=== PATIENT | female | born 1995 | race Caucasian/White ===

== ENCOUNTER 2018-04-09 10:24 | Day surgery (SDC) | payer BC ==
[2018-04-09] MEDS ORDERED: fentaNYL 100 MCG/2 ML SDV ONE (11:00)
[2018-04-09] MEDS ORDERED: Propofol 200 MG/20 ML SDV ONE (11:00)
[2018-04-09] MEDS ORDERED: Midazolam 1 MG/ML 2 ML SDV ONE (11:00)
[2018-04-09] MEDS ORDERED: Ondansetron 4 MG/2 ML SDV ONE (11:00)
[2018-04-09] MEDS ORDERED: Glycopyrrolate 0.2 MG/ML SDV ONE (11:01)
--- NOTE | 2018-04-09 11:18 | PCM.PREANE ---
Preanesthetic Assessment - Procedure Proposed Procedure: Removal IUD, D and C - Anesthesia/Transfusion/Family Hx Anesthesia History: Prior Anesthesia Without Reaction Family History of Anesthesia Reaction: No Transfusion History: No Prior Transfusion(s) Intubation History: Unknown - Review of Systems General: No Symptoms Pulmonary: No Symptoms Cardiovascular: No Symptoms Gastrointestinal: No Symptoms Neurological: No Symptoms Other: Reports: Depression, Anxiety - Physical Assessment NPO Status Date: 04/08/18 NPO Status Time: 22:00 O2 Sat by Pulse Oximetry: 98 Respiratory Rate: 16 Vital Signs: Last Vital Signs Temp 97.5 F 04/09/18 10:54 Pulse 66 04/09/18 10:54 Resp 16 04/09/18 10:54 BP 103/64 04/09/18 10:54 Pulse Ox 98 04/09/18 10:54 Height: 5 ft 6 in Weight: 176 lb ASA Class: 2 Mental Status: Alert & Oriented x3 Airway Class: Mallampati = 1 Dentition: Reports: Normal Dentition Thyro-Mental Finger Breadths: 3 Mouth Opening Finger Breadths: 3 ROM/Head Extension: Full Lungs: Clear to Auscultation, Normal Respiratory Effort Cardiovascular: Regular Rate, Regular Rhythm, No Murmurs - Lab Values: Laboratory Last Values WBC 5.49 K/uL (4.0-11.0) 04/09/18 10:38 RBC 5.04 M/uL (4.30-5.90) 04/09/18 10:38 Hgb 15.3 g/dL (12.0-16.0) 04/09/18 10:38 Hct 44.1 % (36.0-46.0) 04/09/18 10:38 MCV 87.5 fL (80.0-98.0) 04/09/18 10:38 MCH 30.4 pg (27.0-32.0) 04/09/18 10:38 MCHC 34.7 g/dL (31.0-37.0) 04/09/18 10:38 RDW Std Deviation 43.1 fl (28.0-62.0) 04/09/18 10:38 RDW Coeff of Wayne 14 % (11.0-15.0) 04/09/18 10:38 Plt Count 171 K/uL (150-400) 04/09/18 10:38 MPV 11.70 fL (7.40-12.00) 04/09/18 10:38 Neut % (Auto) 48.2 % (48.0-80.0) 04/09/18 10:38 Lymph % (Auto) 43.0 % (16.0-40.0) H 04/09/18 10:38 Dixie % (Auto) 7.3 % (0.0-15.0) 04/09/18 10:38 Eos % (Auto) 1.3 % (0.0-7.0) 04/09/18 10:38 Baso % (Auto) 0.2 % (0.0-1.5) 04/09/18 10:38 Neut # (Auto) 2.7 K/uL (1.4-5.7) 04/09/18 10:38 Lymph # (Auto) 2.4 K/uL (0.6-2.4) 04/09/18 10:38 [place] # (Auto) 0.4 K/uL (0.0-0.8) 04/09/18 10:38 Eos # (Auto) 0.1 K/uL (0.0-0.7) 04/09/18 10:38 Baso # (Auto) 0.0 K/uL (0.0-0.1) 04/09/18 10:38 Nucleated RBC % 0.0 /100WBC 04/09/18 10:38 Nucleated RBCs # 0 K/uL 04/09/18 10:38 - Allergies Allergies/Adverse Reactions: Allergies Allergy/AdvReac Type Severity Reaction Status Date / Time No Known Allergies Allergy Verified 03/08/18 20:53 - Blood Blood Available: No Product(s) Available: None - Anesthesia Plan Pre-Op Medication Ordered: None - Acknowledgements Anesthesia Type Planned: General Anesthesia (LMA) Pt an Appropriate Candidate for the Planned Anesthesia: Yes Alternatives and Risks of Anesthesia Discussed w Pt/Guardian: Yes Pt/Guardian Understands and Agrees with Anesthesia Plan: Yes PreAnesthesia Questionnaire HEENT History: Reports: None Cardiovascular History: Reports: None Respiratory History: Reports: None Genitourinary History: Reports: None 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 Musculoskeletal History: Reports: Fracture Other Musculoskeletal History: left long finger Neurological History: Reports: Concussion Psychiatric History: Reports: Anxiety, Depression Endocrine/Metabolic History: Reports: None Hematologic History: Reports: None Immunologic History: Reports: None Oncologic (Cancer) History: Reports: None Dermatologic History: Reports: None - Past Surgical History Head Surgeries/Procedures: Reports: None HEENT Surgical History: Reports: Oral Surgery Other HEENT Surgeries/Procedures: wisdom teeth GI Surgical History: Reports: Colonoscopy, EGD Musculoskeletal Surgical History: Reports: ORIF Other Musculoskeletal Surgeries/Procedures:: ORIF left long finger- hardware later removed - SUBSTANCE USE Smoking Status *Q: Never Smoker Recreational Drug Use History: No - HOME MEDS Home Medications: Home Meds FLUoxetine HCl [Fluoxetine HCl] 60 mg PO DAILY 03/08/18 [History] Plecanatide [Trulance] 1 tab PO DAILY 03/08/18 [History] Zolpidem Tartrate [Ambien Cr] 1 tab PO BEDTIME 03/08/18 [History] Levonorgestrel [Mirena] 1 device VAG ONETIME 04/04/18 [History] valACYclovir HCl [Valtrex] 1 tab PO ASDIRECTED PRN 04/04/18 [History] - CURRENT (IN HOUSE) MEDS Current Meds: Current Medications Discontinued Medications Fentanyl (Sublimaze) Confirm Administered Dose 100 mcg .ROUTE .STK-MED ONE Stop: 04/09/18 11:01 Glycopyrrolate (Robinul) Confirm Administered Dose 0.2 mg .ROUTE .STK-MED ONE Stop: 04/09/18 11:02 Lidocaine HCl (Xylocaine-Mpf 1%) Confirm Administered Dose 5 mls @ as directed .ROUTE .STK-MED ONE Stop: 04/09/18 11:01 Midazolam HCl (Versed 1 Mg/Ml) Confirm Administered Dose 2 mg .ROUTE .STK-MED ONE Stop: 04/09/18 11:01 Ondansetron HCl (Zofran) Confirm Administered Dose 4 mg .ROUTE .STK-MED ONE Stop: 04/09/18 11:01 Propofol (Diprivan 20 Ml) Confirm Administered Dose 200 mg .ROUTE .STK-MED ONE Stop: 04/09/18 11:01
--- NOTE | 2018-04-09 12:55 | PCM.POSTAN ---
POST ANESTHESIA ASSESSMENT - MENTAL STATUS Mental Status: Alert, Oriented - RESPIRATORY Respiratory Status: Respiratory Rate WNL, Airway Patent, O2 Saturation Stable - CARDIOVASCULAR CV Status: Pulse Rate WNL, Blood Pressure Stable - GASTROINTESTINAL GI Status: No Symptoms - PAIN Pain Score: 0 - POST OP HYDRATION Hydration Status: Adequate & Stable
--- NOTE | 2018-04-09 13:27 | PCM48HPAN ---
Post Anesthesia Note - EVALUATION WITHIN 48HRS OF ANESTHETIC Vital Signs in Normal Range: Yes Patient Participated in Evaluation: Yes Respiratory Function Stable: Yes Airway Patent: Yes Cardiovascular Function Stable: Yes Hydration Status Stable: Yes Pain Control Satisfactory: Yes Nausea and Vomiting Control Satisfactory: Yes Mental Status Recovered: Yes Resp Rate: 16
--- NOTE | 2018-04-09 17:00 | PCM.OPNOTE ---
- General Post-Op/Procedure Note Date of Surgery/Procedure: 04/09/18 Operative Procedure(s): Hysteroscopic IUD removal Findings: IUD string tucked up in the uterine cavity Pre Op Diagnosis: Retained IUD Post-Op Diagnosis: Retained IUD Anesthesia Technique: General LMA Primary Surgeon: Nabeel Elise Anesthesia Provider: Viraj Samayoa Pathology: IUD Fluid Replacement, Intraop: 300 EBL in mLs: 5 Complications: None Condition: Good Free Text/Narrative:: IUD string in cervical canal Intake & Output 04/09/18 04/09/18 04/09/18 06:59 14:59 22:59 Intake Total 550 Balance 550
--- NOTE | 2018-04-10 08:35 | OR ---
SURGEON: JESSIKA TOUSSAINT DATE OF PROCEDURE: 04/09/2018 PREOPERATIVE DIAGNOSES: Retained IUD. POSTOPERATIVE DIAGNOSIS: Retained IUD. PROCEDURE: Hysteroscopic IUD removal. ESTIMATED BLOOD LOSS: Minimal. IV FLUIDS: 300. FLUID DEFICIT: 170 of normal saline. BRIEF HISTORY ABOUT THE PATIENT: She is a patient, 23-year-old, who had an IUD in place and had incidental noted. The patient had a spontaneous miscarriage. The patient, because of the failure of Mirena IUD, requested IUD removal. On exam, the patient's IUD string was not visible. Attempt was made to remove the IUD in the office, which was not successful. The patient was given the option for hysteroscopic removal in the OR. She was explained the risks, benefits, and alternatives. DESCRIPTION OF PROCEDURE: The patient was taken to the operating room, where general anesthesia was performed without difficulty. The patient was placed in dorsal lithotomy position with the Donny stirrups. She was prepared and draped in the normal sterile fashion. The bivalve speculum was inserted in the vagina to expose the cervix. The Allis forceps was used to grasp the anterior lip of the cervix. The cervix was then dilated to accommodate the 5 mm hysteroscope. The IUD string was noted in the cervical os, and was then grasped with the grasper. The IUD was removed. Speculum and all instruments were removed. The patient tolerated the procedure well. All instrument and pad counts were correct x2. WESTON / FABIOLA /[id number]
== END 2018-04-09 13:40 | disposition home or self-care (01) ==
LOC: MW.SDS 10:24
PROVIDERS: ATTEND Obstetrics & Gynecology
DX: Z30.432 Encounter for removal of intrauterine contraceptive device (principal); F32.9 Major depressive disorder, single episode, unspecified; F41.9 Anxiety disorder, unspecified; Z79.899 Other long term (current) drug therapy
CPT/HCPCS: 36415; 58579; 84703; 85025; J2250; J2405; J2704; J3010; J3490; 00940

== ENCOUNTER 2020-09-19 18:40 | Emergency (ER) | payer BC ==
[2020-09-19] MEDS ORDERED: Lactated Ringers 1,000 ML IV ONE (19:03)
[2020-09-19] MEDS ORDERED: Sodium Chloride 0.9% 2.5 ML Syringe FLUSH PRN (19:03)
[2020-09-19] MEDS ORDERED: Ondansetron 4 MG/2 ML SDV IVPUSH ONE (19:03)
[2020-09-19] MEDS ORDERED: Famotidine 20 MG/2 ML SDV IVPUSH ONE (19:03)
[2020-09-19] MEDS ORDERED: Sodium Chloride 0.9% 10 ML Syringe FLUSH PRN (19:03)
--- NOTE | 2020-09-19 19:11 | EDM.PDOC ---
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 She denies fever, chills, diarrhea, leakage of fluid, pelvic pain, vaginal bleeding. She has had 3 episodes of nonbloody vomitus. 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 Mellissa Mckenzie ROS: A 10-point review of systems, other than pertinent positives and negatives as stated per HPI, is otherwise negative Past medical history: No additional pertinent history Past Surgical history: No additional pertinent history Social history: No additional pertinent history Family history: No additional pertinent history PHYSICAL EXAM General: AOx4, GCS = 15, mild distress HEENT: dry mucous membrane Neck: supple, no meningismus, no Kernig or Brudzinski Cardiac: S1S2 RRR Respiratory: CTAB, no crackles or rales, no wheezing Abdomen: Soft, ttp epigastric/periumbilical/RLQ, no rebound or guarding, nondis tended, no pulsatile mass. Back: nontender Musculoskeletal: NVI distally, no deformity Neuro: No focal deficits, CN 2 - 12 WNL. 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 Musculoskeletal History: Reports: Fracture Other Musculoskeletal History: left long finger Neurological History: Reports: Concussion Psychiatric History: Reports: Anxiety, Depression Endocrine/Metabolic History: Reports: None Hematologic History: Reports: None Immunologic History: Reports: None Oncologic (Cancer) History: Reports: None Dermatologic History: Reports: None - Infectious Disease History Infectious Disease History: Reports: None - Past Surgical History Head Surgeries/Procedures: Reports: None HEENT Surgical History: Reports: Oral Surgery Other HEENT Surgeries/Procedures: wisdom teeth GI Surgical History: Reports: Colonoscopy, EGD Musculoskeletal Surgical History: Reports: ORIF Other Musculoskeletal Surgeries/Procedures:: ORIF left long finger- hardware later removed Social & Family History - Family History Family Medical History: No Pertinent Family History - Tobacco Use Tobacco Use Status *Q: Never Tobacco User - Caffeine Use Caffeine Use: Reports: Coffee - Recreational Drug Use Recreational Drug Use: No ED ROS GENERAL - Review of Systems Review Of Systems: See Below (see dictation) ED EXAM, GI/ABD - Physical Exam Exam: See Below (see dictation) Course - Vital Signs Last Recorded V/S: Last Vital Signs Temp 97.4 F 09/19/20 18:47 Pulse 76 09/19/20 22:10 Resp 18 09/19/20 22:10 BP 104/61 09/19/20 22:10 Pulse Ox 98 09/19/20 22:10 - Orders/Labs/Meds Orders: Active Orders 24 hr Category Date Time Status Abdomen Pelvis w Cont [CT] Stat Exams 09/19/20 22:27 Ordered Sodium Chloride 0.9% [Saline Flush] Med 09/19/20 19:03 Active 10 ml FLUSH ASDIRECTED PRN Sodium Chloride 0.9% [Saline Flush] Med 09/19/20 19:03 Active 2.5 ml FLUSH ASDIRECTED PRN Saline Lock Insert [OM.PC] Stat Oth 09/19/20 19:03 Ordered Medication Orders Sodium Chloride (Saline Flush) 10 ml FLUSH ASDIRECTED PRN PRN Reason: Keep Vein Open Last Admin: 09/19/20 19:36 Dose: 10 ml Documented by: SHARMAINE Sodium Chloride (Saline Flush) 2.5 ml FLUSH ASDIRECTED PRN PRN Reason: Keep Vein Open Last Admin: 09/19/20 19:36 Dose: 2.5 ml Documented by: SHARMAINE Labs: Laboratory Tests 09/19/20 09/19/20 09/19/20 Range/Units 18:53 19:38 19:38 WBC 13.70 H (4.0-11.0) K/uL RBC 4.31 (4.30-5.90) M/uL Hgb 13.2 (12.0-16.0) g/dL Hct 38.1 (36.0-46.0) % MCV 88.4 (80.0-98.0) fL MCH 30.6 (27.0-32.0) pg MCHC 34.6 (31.0-37.0) g/dL RDW Std Deviation 45.1 (28.0-62.0) fl RDW Coeff of Wayne 14 (11.0-15.0) % Plt Count 181 (150-400) K/uL MPV 12.00 (7.40-12.00) fL Neut % (Auto) 77.2 (48.0-80.0) % Lymph % (Auto) 16.4 (16.0-40.0) % [place] % (Auto) 5.8 (0.0-15.0) % Eos % (Auto) 0.5 (0.0-7.0) % Baso % (Auto) 0.1 (0.0-1.5) % Neut # (Auto) 10.6 H (1.4-5.7) K/uL Lymph # (Auto) 2.3 (0.6-2.4) K/uL [place] # (Auto) 0.8 (0.0-0.8) K/uL Eos # (Auto) 0.1 (0.0-0.7) K/uL Baso # (Auto) 0.0 (0.0-0.1) K/uL Nucleated RBC % 0.0 /100WBC Nucleated RBCs # 0 K/uL Lactate 0.6 (0.20-2.00) mmol/L Sodium (136-145) mmol/L Potassium (3.5-5.1) mmol/L Chloride (98-107) mmol/L Carbon Dioxide (21.0-32.0) mmol/L BUN (7.0-18.0) mg/dL Creatinine (0.6-1.0) mg/dL Est Cr Clr Drug Dosing mL/min Estimated GFR (MDRD) ml/min Glucose (74-106) mg/dL Calcium (8.5-10.1) mg/dL Magnesium (1.8-2.4) mg/dL Total Bilirubin (0.2-1.0) mg/dL AST (15-37) IU/L ALT (14-63) IU/L Alkaline Phosphatase (46-116) U/L Total Protein (6.4-8.2) g/dL Albumin (3.4-5.0) g/dL Globulin (2.6-4.0) g/dL Albumin/Globulin Ratio (0.9-1.6) Lipase (73-393) U/L Urine Color YELLOW Urine Appearance CLEAR Urine pH 6.5 (5.0-8.0) Ur Specific [place] 1.020 (1.001-1.035) Urine Protein NEGATIVE (NEGATIVE) mg/dL Urine Glucose (UA) NEGATIVE (NEGATIVE) mg/dL Urine Ketones NEGATIVE (NEGATIVE) mg/dL Urine Occult Blood NEGATIVE (NEGATIVE) Urine Nitrite NEGATIVE (NEGATIVE) Urine Bilirubin NEGATIVE (NEGATIVE) Urine Urobilinogen 0.2 (<2.0) EU/dL Ur Leukocyte Esterase NEGATIVE (NEGATIVE) 09/19/20 Range/Units 19:38 WBC (4.0-11.0) K/uL RBC (4.30-5.90) M/uL Hgb (12.0-16.0) g/dL Hct (36.0-46.0) % MCV (80.0-98.0) fL MCH (27.0-32.0) pg MCHC (31.0-37.0) g/dL RDW Std Deviation (28.0-62.0) fl RDW Coeff of Wayne (11.0-15.0) % Plt Count (150-400) K/uL MPV (7.40-12.00) fL Neut % (Auto) (48.0-80.0) % Lymph % (Auto) (16.0-40.0) % Cache % (Auto) (0.0-15.0) % Eos % (Auto) (0.0-7.0) % Baso % (Auto) (0.0-1.5) % Neut # (Auto) (1.4-5.7) K/uL Lymph # (Auto) (0.6-2.4) K/uL [place] # (Auto) (0.0-0.8) K/uL Eos # (Auto) (0.0-0.7) K/uL Baso # (Auto) (0.0-0.1) K/uL Nucleated RBC % /100WBC Nucleated RBCs # K/uL Lactate (0.20-2.00) mmol/L Sodium 138 (136-145) mmol/L Potassium 3.7 (3.5-5.1) mmol/L Chloride 103 (98-107) mmol/L Carbon Dioxide 23.6 (21.0-32.0) mmol/L BUN 12 (7.0-18.0) mg/dL Creatinine 0.6 (0.6-1.0) mg/dL Est Cr Clr Drug Dosing 133.01 mL/min Estimated GFR (MDRD) > 60.0 ml/min Glucose 86 (74-106) mg/dL Calcium 8.3 L (8.5-10.1) mg/dL Magnesium 1.8 (1.8-2.4) mg/dL Total Bilirubin 0.2 (0.2-1.0) mg/dL AST 22 (15-37) IU/L ALT 36 (14-63) IU/L Alkaline Phosphatase 45 L (46-116) U/L Total Protein 6.5 (6.4-8.2) g/dL Albumin 3.1 L (3.4-5.0) g/dL Globulin 3.4 (2.6-4.0) g/dL Albumin/Globulin Ratio 0.9 (0.9-1.6) Lipase 121 (73-393) U/L Urine Color Urine Appearance Urine pH (5.0-8.0) Ur Specific [place] (1.001-1.035) Urine Protein (NEGATIVE) mg/dL Urine Glucose (UA) (NEGATIVE) mg/dL Urine Ketones (NEGATIVE) mg/dL Urine Occult Blood (NEGATIVE) Urine Nitrite (NEGATIVE) Urine Bilirubin (NEGATIVE) Urine Urobilinogen (<2.0) EU/dL Ur Leukocyte Esterase (NEGATIVE) Meds: Medications Generic Name Dose Route Start Last Admin Trade Name Yan PRN Reason Stop Dose Admin Sodium Chloride 10 ml 09/19/20 19:03 09/19/20 19:36 Saline Flush FLUSH 10 ml ASDIRECTED PRN Administration Keep Vein Open Sodium Chloride 2.5 ml 09/19/20 19:03 09/19/20 19:36 Saline Flush FLUSH 2.5 ml ASDIRECTED PRN Administration Keep Vein Open Discontinued Medications Generic Name Dose Route Start Last Admin Trade Name Yna PRN Reason Stop Dose Admin Al Hydroxide/Mg Hydroxide 30 ml 09/19/20 20:44 09/19/20 20:55 Mag-Al Plus PO 09/19/20 20:45 30 ml ONETIME ONE Administration Famotidine 20 mg 09/19/20 19:03 09/19/20 19:35 Pepcid IVPUSH 09/19/20 19:04 20 mg ONETIME ONE Administration Lactated Ringer's 1,000 mls @ 999 mls/hr 09/19/20 19:03 09/19/20 19:36 Ringers, Lactated IV 09/19/20 20:03 999 mls/hr .BOLUS ONE Administration Morphine Sulfate 4 mg 09/19/20 22:28 Morphine IVPUSH 09/19/20 22:29 ONETIME ONE Ondansetron HCl 4 mg 09/19/20 19:03 09/19/20 19:35 Zofran IVPUSH 09/19/20 19:04 4 mg ONETIME ONE Administration - Re-Assessments/Exams Free Text/Narrative Re-Assessment/Exam: 09/19/204 After getting p.o. 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 09/19/[address] Mata, she states the leukocytosis is appropriately elevated secondary to her . She recommends IV morphine and CT abdomen pelvis with contrast. 09/19/20 23:01 The patient was informed of the need for CT to further delineate and manage her current presentation. She is alert/oriented x 4 with great decision making capacity. She has declined to undergo CT despite my recommendation. She has been warned of the potential risks of not undergoing this procedure, including worsening pain and , and the patient still elects to decline. She would rather go home and rest and come back in the morning if her pain gets worse. MEDICAL DECISION MAKING: I reviewed the patients past medical records, lab and radiographic findings. I discussed the case with the patient. My differential diagnosis included: Round ligament syndrome, GERD, pancreatitis, demise. Patient's pelvic and abdominal ultrasound were unremarkable for gallbladder etiology or abnormalities. Her lipase was unremarkable for pancreatitis. She was given Maalox with only mild improvement. Repeat abdominal exam still demonstrated tenderness to the epigastric and periumbilical region, her AUTOMOTIVE STARTER REPAIRER recommended CT abdomen pelvis with contrast which she declined. She would rather go home for expectant management and return if her pain worsen. Departure - Departure Time of Disposition: 23:04 Disposition: Home, Self-Care 01 Condition: Undetermined Clinical Impression: Abdominal pain - Discharge Information *PRESCRIPTION DRUG MONITORING PROGRAM REVIEWED*: Not Applicable *COPY OF PRESCRIPTION DRUG MONITORING REPORT IN PATIENT JACQUELINE: Not Applicable Instructions: Abdominal Pain, Adult, [id number] Referrals: Nabeel Elise MD [Physician] - 3 Days Forms: ED Department Discharge Additional Instructions: The need for follow-up, as well as the timing and circumstances, are variable depending upon the specifics of your emergency department visit. If you don't have a primary care physician on staff, we will provide you with a referral. We always advise you to contact your personal physician following an emergency department visit to inform them of the circumstance of the visit and for follow-up with them and/or the need for any referrals to a consulting specialist. The emergency department will also refer you to a specialist when appropriate. This referral assures that you have the opportunity for follow-up care with a specialist. All of these measure are taken in an effort to provide you with optimal care, which includes your follow-up. Under all circumstances we always encourage you to contact your private physician who remains a resource for coordinating your care. When calling for follow-up care, please make the office aware that this follow-up is from your recent emergency room visit. If for any reason you are refused follow-up, please contact the [facility] Emergency Department at and asked to speak to the emergency department charge nurse. If you do not have a primary care doctor, please follow up with the clinics below within 3-5 days. [facility] - Primary Care [address] [place] [id number] [facility] [address] [place] [id number] Sepsis Event Note (ED) - Evaluation Sepsis Screening Result: No Definite Risk - Focused Exam Vital Signs: Vital Signs Temp Pulse Resp BP Pulse Ox 09/19/20 22:10 76 18 104/61 98 09/19/20 18:47 97.4 F 82 16 113/76 98 - My Orders Last 24 Hours: My Active Orders 09/19/20 19:03 Sodium Chloride 0.9% [Saline Flush] 10 ml FLUSH ASDIRECTED PRN Sodium Chloride 0.9% [Saline Flush] 2.5 ml FLUSH ASDIRECTED PRN Saline Lock Insert [OM.PC] Stat 09/19/20 22:27 Abdomen Pelvis w Cont [CT] Stat - Assessment/Plan Last 24 Hours: My Active Orders 09/19/20 19:03 Sodium Chloride 0.9% [Saline Flush] 10 ml FLUSH ASDIRECTED PRN Sodium Chloride 0.9% [Saline Flush] 2.5 ml FLUSH ASDIRECTED PRN Saline Lock Insert [OM.PC] Stat 09/19/20 22:27 Abdomen Pelvis w Cont [CT] Stat
[2020-09-19 20:06] LABS: BLOOD UREA NITROGEN,BUN 12 mg/dL (7.0-18.0); CARBON DIOXIDE,CO2 23.6 mmol/L (21.0-32.0); CHLORIDE,CL 103 mmol/L (98-107); GLUCOSE RANDOM 86 mg/dL (74-106); LIPASE 121 U/L (73-393); POTASSIUM,K 3.7 mmol/L (3.5-5.1); SODIUM,NA 138 mmol/L (136-145)
[2020-09-19] MEDS ORDERED: Aluminum Hydroxide/Magnesium Hydroxide/Simethicone Susp 30 ML Cup PO ONE (20:44)
--- NOTE | 2020-09-19 21:20 | US ---
INDICATION: Abdominal pain TECHNIQUE: Real-time taveras-scale imaging of the pelvis was performed. FINDINGS: Sonographic imaging demonstrates a single living intrauterine gestation. The embryo demonstrates a regular cardiac rate measuring 158 beats per minute. The embryo`s crown-rump length measurement of 5 cm corresponds to a gestational age of 11 weeks 5 days with a sonographic due date of 04/05/2021. Cervical length measures 3.7 cm. Placenta anterior without previa. Both ovaries appear unremarkable. No free fluid no adnexal mass. No perigestational hemorrhage. IMPRESSION: Early intrauterine . Gestational age calculated at 11 weeks 5 days with GIOVANI of 04/05/2021. No perigestational hemorrhage. Dictated by Rona Morales MD @ Sep 19 2020 9:16PM Signed by Dr. Rona Morales @ Sep 19 2020 9:20PM
--- NOTE | 2020-09-19 21:24 | US ---
CLINICAL HISTORY: Periumbilical pain FINDINGS: The patient`s liver is of normal size and has uniform echogenicity. There is a normal appearance of the hepatic IVC and proximal abdominal aorta. There is no evidence of ascites. The gallbladder is of normal size and there is no evidence of intraluminal stones or sludge. The gallbladder wall measures 2 mm in thickness. The common bile duct is of normal size and measures 4 mm in diameter at the level of the cecelia hepatis. The pancreas appears normal. There is no evidence of a stone or hydronephrosis within the kidneys. The right kidney measures 11.2 cm in length. Left kidney measures 12.2. Spleen unremarkable. IMPRESSION: Unremarkable abdominal ultrasound. Dictated by Rona Morales MD @ Sep 19 2020 9:20PM Signed by Dr. Rona Morales @ Sep 19 2020 9:22PM
[2020-09-19] MEDS ORDERED: Morphine 4 MG/ML Syringe IVPUSH ONE (22:28)
== END 2020-09-19 23:12 | disposition home or self-care (01) ==
LOC: MW.ED 18:40
DX: O99.891 Other specified diseases and conditions complicating pregnancy (principal); R10.84 Generalized abdominal pain; Z3A.12 12 weeks gestation of pregnancy
CPT/HCPCS: 36415; 76700; 76817; 80053; 81003; 83605; 83690; 83735; 85025; 96374; 96375; 99284; A9270; J2405; J3490; J7120

== ENCOUNTER 2021-03-10 19:59 | Inpatient (IN) | payer BC ==
[2021-03-11] MEDS ORDERED: Water For Irrigation,Sterile 1,000 ML Container IRR PRN (00:46)
[2021-03-11] MEDS ORDERED: Tranexamic Acid 1,000 MG in Sodium Chloride 0.9% 100 ML IV PRN (00:46)
[2021-03-11] MEDS ORDERED: Sodium Chloride 0.9% 10 ML Syringe FLUSH PRN (00:46)
[2021-03-11] MEDS ORDERED: Misoprostol 200 MCG Tab PO PRN (00:46)
[2021-03-11] MEDS ORDERED: Methylergonovine 0.2 MG/1 ML Amp IM PRN (00:46)
[2021-03-11] MEDS ORDERED: Nalbuphine 10 MG/1 ML Vial IVPUSH PRN (00:46)
[2021-03-11] MEDS ORDERED: Butorphanol 1 MG/ML SDV IVPUSH PRN (00:46)
[2021-03-11] MEDS ORDERED: Carboprost Tromethamine 250 MCG/1 ML Amp IM PRN (00:46)
[2021-03-11] MEDS ORDERED: Sodium Chloride 0.9% 10 ML SDV IV PRN (00:46)
[2021-03-11] MEDS ORDERED: Sodium Chloride 0.9% 2.5 ML Syringe FLUSH PRN (00:46)
[2021-03-11] MEDS ORDERED: Lidocaine 1% 50 ML MDV INJECT PRN (00:46)
--- NOTE | 2021-03-11 00:57 | PCM.LDHP ---
L&D History of Present Illness - General Date of Service: 03/11/21 Admit Problem/Dx: Patient Status Order with Admit Dx/Problem 03/10/21 20:05 Patient Status [ADT] Routine 03/11/21 00:46 Patient Status [ADT] Routine Admission Diagnosis/Problem Admission Diagnosis/Problem Source of Information: Patient History Limitations: Reports: No Limitations - History of Present Illness Introduction:: Diana is a 25 yo at 37w2d GIOVANI 03/30/2021 by LMP confirmed with ultrasound at 8 weeks. She presents with onset of regular painful contractions starting around 19:00. She noted decreased movement today. Denies loss of fluid or vaginal bleeding. complicated with RVEF. She completed the NIPS testing which resulted as low risk. She also has a history of depression and anxiety. She has been on fluoxetine and wellbutrin and following with a counselor in [place]. GBS negative. Estimated weight 82% by ultrasound. 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 Musculoskeletal History: Reports: Fracture Other Musculoskeletal History: left long finger Neurological History: Reports: Concussion Psychiatric History: Reports: Anxiety, Depression Endocrine/Metabolic History: Reports: None Hematologic History: Reports: None Immunologic History: Reports: None Oncologic (Cancer) History: Reports: None Dermatologic History: Reports: None - Infectious Disease History Infectious Disease History: Reports: None - Past Surgical History Head Surgeries/Procedures: Reports: None HEENT Surgical History: Reports: Oral Surgery Other HEENT Surgeries/Procedures: wisdom teeth GI Surgical History: Reports: Colonoscopy, EGD Musculoskeletal Surgical History: Reports: ORIF Other Musculoskeletal Surgeries/Procedures:: ORIF left long finger- hardware later removed Social & Family History - Family History Family Medical History: No Pertinent Family History - Caffeine Use Caffeine Use: Reports: Coffee H&P Review of Systems - Review of Systems: Review Of Systems: See Below General: Reports: No Symptoms HEENT: Reports: No Symptoms Pulmonary: Reports: No Symptoms Cardiovascular: Reports: No Symptoms Gastrointestinal: Reports: No Symptoms Genitourinary: Reports: No Symptoms Musculoskeletal: Reports: No Symptoms Skin: Reports: No Symptoms Psychiatric: Reports: No Symptoms Neurological: Reports: No Symptoms Hematologic/Lymphatic: Reports: No Symptoms L&D Exam - Exam Exam: See Below - Vital Signs Weight: 204 lb - OB Specific Contraction Frequency (min): 2-3 minutes Contraction Intensity: Moderate to Strong Movement: Active Heart Tones: Present Heart Tones per Min: 150 Heart Rate (FHR) Variability: Moderate (6-25 bpm) Estimated Weight: 8.5 lbs - Exam General: Alert, Oriented HEENT: Conjunctiva Clear, Pupils Equal, Pupils Reactive Neck: Supple, Trachea Midline Lungs: Clear to Auscultation, Normal Respiratory Effort Cardiovascular: Regular Rate, Regular Rhythm GI/Abdominal Exam: Normal Bowel Sounds, Soft, Non-Tender Genitourinary: Cervical dilitation (4 cm per patient nurse) Back Exam: Normal Inspection, Full Range of Motion Extremities: Normal Inspection, Normal Range of Motion, Pedal Edema (1+ edema) Skin: Warm, Dry, Intact Neurological: Cranial Nerves Intact Psychiatric: Alert, Normal Affect, Normal Mood - Patient Data Lab Results Last 24 hrs: Laboratory Results - last 24 hr 03/10/21 03/10/21 Range/Units 20:10 22:40 Urine Color YELLOW Urine Appearance CLEAR Urine pH 7.5 (5.0-8.0) Ur Specific [place] 1.020 (1.001-1.035) Urine Protein NEGATIVE (NEGATIVE) mg/dL Urine Glucose (UA) NEGATIVE (NEGATIVE) mg/dL Urine Ketones NEGATIVE (NEGATIVE) mg/dL Urine Occult Blood NEGATIVE (NEGATIVE) Urine Nitrite NEGATIVE (NEGATIVE) Urine Bilirubin NEGATIVE (NEGATIVE) Urine Urobilinogen 0.2 (<2.0) EU/dL Ur Leukocyte Esterase NEGATIVE (NEGATIVE) Urine RBC NONE SEEN (0-2/HPF) Urine WBC 0-2 (0-5/HPF) Ur Epithelial Cells MODERATE (NONE-FEW) Urine Bacteria FEW (NEGATIVE) Urine Mucus LIGHT (NONE-MOD) SARS-CoV-2 RNA (MARY ELLEN) NEGATIVE (NEGATIVE) Problem List Initiated/Reviewed/Updated: Yes Orders Last 24hrs: Active Orders 24 hr Category Date Time Status Patient Status [ADT] Routine ADT 03/11/21 00:46 Active Heart Tones [RC] CONTINUOUS Care 03/11/21 00:46 Active Non Stress Test [RC] PER UNIT ROUTINE Care 03/10/21 20:57 Active May Shower [RC] ASDIRECTED Care 03/11/21 00:46 Active Notify Provider [RC] PRN Care 03/11/21 00:46 Active Peripheral IV Care [RC] PRN Care 03/11/21 00:46 Active Up ad Benita [RC] ASDIRECTED Care 03/10/21 20:57 Active Vaginal Exam [RC] Click to Edit Care 03/10/21 20:57 Active Vital Signs [RC] PER UNIT ROUTINE Care 03/10/21 20:57 Active CBC W/O DIFF,HEMOGRAM [HEME] Routine Lab 03/11/21 00:46 Ordered RPR (SYPHILIS SERO) W/ RFLX [REF] Routine Lab 03/11/21 00:46 Ordered TYPE AND SCREEN [BBK] Routine Lab 03/11/21 00:46 Ordered Butorphanol [Stadol] Med 03/11/21 00:46 Active 1 mg IVPUSH Q1H PRN Carboprost Tromethamine [Hemabate DS] Med 03/11/21 00:46 Active 250 mcg IM ASDIRECTED PRN Lactated Ringers [Ringers, Lactated] 1,000 ml Med 03/11/21 01:00 Active IV ASDIRECTED Lidocaine 1% [Xylocaine 1%] Med 03/11/21 00:46 Active 50 ml INJECT ONETIME PRN Methylergonovine [Methergine] Med 03/11/21 00:46 Active 0.2 mg IM ASDIRECTED PRN Nalbuphine [Nubain] Med 03/11/21 00:46 Active 10 mg IVPUSH Q1H PRN Ondansetron [Zofran] Med 03/11/21 00:46 Active 4 mg IVPUSH Q6H PRN Oxytocin/0.9 % Sodium Chloride [Oxytocin 30 Unit/500 ML Med 03/11/21 01:00 Active -NS] 30 unit in 500 ml IV TITRATE Sodium Chloride 0.9% [Normal Saline] Med 03/11/21 00:46 Active 10 ml IV ASDIRECTED PRN Sodium Chloride 0.9% [Saline Flush] Med 03/11/21 00:46 Active 10 ml FLUSH ASDIRECTED PRN Sodium Chloride 0.9% [Saline Flush] Med 03/11/21 00:46 Active 2.5 ml FLUSH ASDIRECTED PRN Tranexamic Acid [Cyklokapron] 1,000 mg Med 03/11/21 00:46 Active Sodium Chloride 0.9% [Normal Saline] 100 ml IV ONETIME Water For Irrigation,Sterile [Sterile Water for Med 03/11/21 00:46 Ordered Irrigation] 1,000 ml IRR ASDIRECTED PRN miSOPROStoL [Cytotec] Med 03/11/21 00:46 Ordered 200 mcg PO ONETIME PRN Scalp Electrode [WOMSER] Per Unit Routine Oth 03/11/21 00:46 Ordered Peripheral IV Insertion Adult [OM.PC] Routine Oth 03/11/21 00:46 Ordered Resuscitation Status Routine Resus Stat 03/10/21 20:57 Ordered Medication Orders Butorphanol Tartrate (Butorphanol 1 Mg/Ml Sdv) 1 mg IVPUSH Q1H PRN PRN Reason: Pain (severe 7-10) Carboprost Tromethamine (Carboprost Tromethamine 250 Mcg/1 Ml Amp) 250 mcg IM ASDIRECTED PRN PRN Reason: Post Hemorrhage Lactated Ringer's (Ringers, Lactated) 1,000 mls @ 150 mls/hr IV ASDIRECTED HELEN Oxytocin/Sodium Chloride (Oxytocin 30 Unit/500 Ml-Ns) 30 unit in 500 mls @ 999 mls/hr IV TITRATE HELEN Tranexamic Acid 1,000 mg/ (Sodium Chloride) 110 mls @ 660 mls/hr IV ONETIME PRN PRN Reason: Bleeding Lidocaine HCl (Lidocaine 1% 50 Ml Mdv) 50 ml INJECT ONETIME PRN PRN Reason: Laceration repair Methylergonovine Maleate (Methylergonovine 0.2 Mg/1 Ml Amp) 0.2 mg IM ASDIRECTED PRN PRN Reason: Post Hemorrhage Misoprostol (Misoprostol 200 Mcg Tab) 200 mcg PO ONETIME PRN PRN Reason: Post Hemorrhage Nalbuphine HCl (Nalbuphine 10 Mg/1 Ml Vial) 10 mg IVPUSH Q1H PRN PRN Reason: Pain (severe 7-10) Ondansetron HCl (Ondansetron 4 Mg/2 Ml Sdv) 4 mg IVPUSH Q6H PRN PRN Reason: Nausea/Vomiting Sodium Chloride (Sodium Chloride 0.9% 10 Ml Syringe) 10 ml FLUSH ASDIRECTED PRN PRN Reason: Keep Vein Open Sodium Chloride (Sodium Chloride 0.9% 2.5 Ml Syringe) 2.5 ml FLUSH ASDIRECTED PRN PRN Reason: Keep Vein Open Sodium Chloride (Sodium Chloride 0.9% 10 Ml Sdv) 10 ml IV ASDIRECTED PRN PRN Reason: IV Use Sterile Water (Water For Irrigation,Sterile 1,000 Ml Container) 1,000 ml IRR ASDIRECTED PRN PRN Reason: delivery Assessment/Plan Comment:: 25 yo at 37w2d presenting in early labor. Reassuring maternal and status. -Monitored in triage and progressed from 2cm to 4cm dilated with increasing intensity of contractions -Admit to inpatient -Obtain CBC, RPR, COVID-19, type and screen - Category 1 tracing - TOCO 2-3 minutes - GBS negative - Desires epidural - Expectant management
[2021-03-11] MEDS ORDERED: Oxytocin/0.9 % Sodium Chloride 30 UNIT/500 ML BAG IV SCH ×2 (01:00→04:30)
[2021-03-11] MEDS: Lactated Ringers 1,000 ML IV SCH ×4 (01:16→18:46)
[2021-03-11] MEDS ORDERED: Bupivacaine 0.25% 10 ML SDV ONE (01:37)
[2021-03-11] MEDS ORDERED: Ropivacaine HCl/PF 200 ML ONE (01:37)
[2021-03-11] MEDS ORDERED: ePHEDrine 50 MG/ML SDV IVPUSH PRN (02:19)
--- NOTE | 2021-03-11 02:19 | PCM.PREANE ---
Preanesthetic Assessment - Anesthesia/Transfusion/Family Hx Anesthesia History: Prior Anesthesia Without Reaction Family History of Anesthesia Reaction: No Transfusion History: No Prior Transfusion(s) Intubation History: Unknown - Review of Systems General: No Symptoms Pulmonary: No Symptoms Cardiovascular: No Symptoms Gastrointestinal: No Symptoms Neurological: No Symptoms Other: Reports: None - Physical Assessment NPO Status Date: 03/11/21 NPO Status Time: 00:00 Height: 5 ft 7 in Weight: 204 lb ASA Class: 2 Mental Status: Alert & Oriented x3 Airway Class: Mallampati = 3 Dentition: Reports: Normal Dentition ROM/Head Extension: Full Lungs: Clear to Auscultation, Normal Respiratory Effort Cardiovascular: Regular Rate, Regular Rhythm - Lab Values: Laboratory Last Values WBC 8.79 K/uL (4.0-11.0) 03/11/21 01:16 RBC 4.00 M/uL (4.30-5.90) L 03/11/21 01:16 Hgb 11.0 g/dL (12.0-16.0) L 03/11/21 01:16 Hct 33.5 % (36.0-46.0) L 03/11/21 01:16 MCV 83.8 fL (80.0-98.0) 03/11/21 01:16 MCH 27.5 pg (27.0-32.0) 03/11/21 01:16 MCHC 32.8 g/dL (31.0-37.0) 03/11/21 01:16 RDW Std Deviation 44.0 fl (28.0-62.0) 03/11/21 01:16 RDW Coeff of [place] 14 % (11.0-15.0) 03/11/21 01:16 Plt Count 138 K/uL (150-400) L 03/11/21 01:16 MPV 12.20 fL (7.40-12.00) H 03/11/21 01:16 Nucleated RBC % 0.2 /100WBC 03/11/21 01:16 Nucleated RBCs # 0 K/uL 03/11/21 01:16 Urine Color YELLOW 03/10/21 20:10 Urine Appearance CLEAR 03/10/21 20:10 Urine pH 7.5 (5.0-8.0) 03/10/21 20:10 Ur Specific [place] 1.020 (1.001-1.035) 03/10/21 20:10 Urine Protein NEGATIVE mg/dL (NEGATIVE) 03/10/21 20:10 Urine Glucose (UA) NEGATIVE mg/dL (NEGATIVE) 03/10/21 20:10 Urine Ketones NEGATIVE mg/dL (NEGATIVE) 03/10/21 20:10 Urine Occult Blood NEGATIVE (NEGATIVE) 03/10/21 20:10 Urine Nitrite NEGATIVE (NEGATIVE) 03/10/21 20:10 Urine Bilirubin NEGATIVE (NEGATIVE) 03/10/21 20:10 Urine Urobilinogen 0.2 EU/dL (<2.0) 03/10/21 20:10 Ur Leukocyte Esterase NEGATIVE (NEGATIVE) 03/10/21 20:10 Urine RBC NONE SEEN (0-2/HPF) 03/10/21 20:10 Urine WBC 0-2 (0-5/HPF) 03/10/21 20:10 Ur Epithelial Cells MODERATE (NONE-FEW) 03/10/21 20:10 Urine Bacteria FEW (NEGATIVE) 03/10/21 20:10 Urine Mucus LIGHT (NONE-MOD) 03/10/21 20:10 SARS-CoV-2 RNA (MARY ELLEN) NEGATIVE (NEGATIVE) 03/10/21 22:40 - Allergies Allergies/Adverse Reactions: Allergies Allergy/AdvReac Type Severity Reaction Status Date / Time No Known Allergies Allergy Verified 03/10/21 20:55 - Blood Blood Available: Yes Product(s) Available: PRBC - Anesthesia Plan Pre-Op Medication Ordered: None - Acknowledgements Anesthesia Type Planned: Epidural Pt an Appropriate Candidate for the Planned Anesthesia: Yes Alternatives and Risks of Anesthesia Discussed w Pt/Guardian: Yes Pt/Guardian Understands and Agrees with Anesthesia Plan: Yes PreAnesthesia Questionnaire HEENT History: Reports: None Cardiovascular History: Reports: None Respiratory History: Reports: None Genitourinary History: Reports: None 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 Musculoskeletal History: Reports: Fracture Other Musculoskeletal History: left long finger Neurological History: Reports: Concussion Psychiatric History: Reports: Anxiety, Depression Endocrine/Metabolic History: Reports: None Hematologic History: Reports: None Immunologic History: Reports: None Oncologic (Cancer) History: Reports: None Dermatologic History: Reports: None - Infectious Disease History Infectious Disease History: Reports: None - Past Surgical History Head Surgeries/Procedures: Reports: None HEENT Surgical History: Reports: Oral Surgery Other HEENT Surgeries/Procedures: wisdom teeth GI Surgical History: Reports: Colonoscopy, EGD Musculoskeletal Surgical History: Reports: ORIF Other Musculoskeletal Surgeries/Procedures:: ORIF left long finger- hardware later removed - HOME MEDS Home Medications: Home Meds FLUoxetine HCl [Fluoxetine HCl] 60 mg PO DAILY 03/08/18 [History] Vits #93/Iron Fum/FA [ Formula Tablet] 1 each PO DAILY 03/10/21 [History] - CURRENT (IN HOUSE) MEDS Current Meds: Current Medications Butorphanol Tartrate (Butorphanol 1 Mg/Ml Sdv) 1 mg IVPUSH Q1H PRN PRN Reason: Pain (severe 7-10) Carboprost Tromethamine (Carboprost Tromethamine 250 Mcg/1 Ml Amp) 250 mcg IM ASDIRECTED PRN PRN Reason: Post Hemorrhage Lactated Ringer's (Ringers, Lactated) 1,000 mls @ 150 mls/hr IV ASDIRECTED HELEN Last Infusion: 03/11/21 02:00 Dose: 150 mls/hr Documented by: Oxytocin/Sodium Chloride (Oxytocin 30 Unit/500 Ml-Ns) 30 unit in 500 mls @ 999 mls/hr IV TITRATE HELEN Tranexamic Acid 1,000 mg/ (Sodium Chloride) 110 mls @ 660 mls/hr IV ONETIME PRN PRN Reason: Bleeding Lidocaine HCl (Lidocaine 1% 50 Ml Mdv) 50 ml INJECT ONETIME PRN PRN Reason: Laceration repair Methylergonovine Maleate (Methylergonovine 0.2 Mg/1 Ml Amp) 0.2 mg IM ASDIRECTED PRN PRN Reason: Post Hemorrhage Misoprostol (Misoprostol 200 Mcg Tab) 200 mcg PO ONETIME PRN PRN Reason: Post Hemorrhage Nalbuphine HCl (Nalbuphine 10 Mg/1 Ml Vial) 10 mg IVPUSH Q1H PRN PRN Reason: Pain (severe 7-10) Ondansetron HCl (Ondansetron 4 Mg/2 Ml Sdv) 4 mg IVPUSH Q6H PRN PRN Reason: Nausea/Vomiting Sodium Chloride (Sodium Chloride 0.9% 10 Ml Syringe) 10 ml FLUSH ASDIRECTED PRN PRN Reason: Keep Vein Open Sodium Chloride (Sodium Chloride 0.9% 2.5 Ml Syringe) 2.5 ml FLUSH ASDIRECTED PRN PRN Reason: Keep Vein Open Sodium Chloride (Sodium Chloride 0.9% 10 Ml Sdv) 10 ml IV ASDIRECTED PRN PRN Reason: IV Use Sterile Water (Water For Irrigation,Sterile 1,000 Ml Container) 1,000 ml IRR ASDIRECTED PRN PRN Reason: delivery Discontinued Medications Bupivacaine HCl (Bupivacaine 0.25% 10 Ml Sdv) Confirm Administered Dose 10 ml .ROUTE .STK-MED ONE Stop: 03/11/21 01:38 Ropivacaine (Naropin 0.2%) Confirm Administered Dose 200 mls @ as directed .ROUTE .[place] ONE Stop: 03/11/21 01:38 - Pre-Procedure Checklist Attending Provider Aware: Yes Chart Reviewed: Yes Consent Signed: Yes Labs Reviewed: Yes VS/FHR Reviewed: Yes Patient Identification Confirmation Method: Reports: Verbal Patient Pt an Appropriate Candidate for the Planned Anesthesia: Yes Alternatives and Risks of Anesthesia Discussed w Pt/Guardian: Yes - Procedure Procedure Start Date: 03/11/21 Procedure Start Time: 01:[address]: Reports: Blood Pressure, Heart Rate, SPO2 Functional IV: Yes Safety Measures: Reports: Patient Identified, Procedure Verified, Site Verified, Procedure Time Out Patient Position: Reports: Sitting Prep: Reports: Betadine x3, Sterile Drape Local Anesthetic: Reports: Intradermal Wheal w Lidocaine 1% Regional Placement Level: Reports: L3-4 Needle: Reports: 17 g Touhy Approach: Reports: Midline Technique: Reports: AURE Plastic Syringe Parasthesia: Reports: None Test Dose Time: 01:47 Test Dose Medication: Reports: Lidocaine 1.5% w Epinephrine 1:200,000 Test Dose Response: Reports: Negative Loading Dose Time: 01:45 Loading Dose Medication: bupivicaine0.25% 10cc Loading Dose Patient Position: sitting Continuous Infusion Start Time: 01:50 Continuous Infusion Medication: ropivicaine 0.2% Continuous Infusion Rate: 16 Continuous Infusion PCS Bolus Option: 4 Patient Position Post Placement: Reports: Supline/DARRON VS and FHR Monitored in Unit Post Placement: Yes Procedure End Date: 03/11/21 Procedure End Time: 02:41
[2021-03-11] MEDS ORDERED: Terbutaline 1 MG/ML SDV SUBCUT PRN (04:21)
[2021-03-11] MEDS: Ondansetron 4 MG/2 ML SDV IVPUSH PRN ×2 (10:05→15:51)
[2021-03-11] MEDS: FLUoxetine 20 MG Cap PO SCH (11:20)
[2021-03-11] MEDS ORDERED: fentaNYL 100 MCG/2 ML SDV ONE (15:36)
[2021-03-11] MEDS ORDERED: Bupivacaine 0.5% 30 ML SDV ONE (15:37)
--- NOTE | 2021-03-11 21:16 | PCM.DEL ---
<Ela Mccoy - Last Filed: 03/11/21 21:11> L & D Note - General Info Date of Service: 03/11/21 Mother's Due Date: 03/30/21 - Delivery Note Labor: Spontaneous, Augmented by Oxytocin Delivery Outcome: Livebirth Delivery Method: Spontaneous Vaginal Delivery-Single Delivery Mode: Spontaneous Presentation: Right Occiput Anterior (JANET) Nuchal Cord: Present (nuchal x4) Amniotic Fluid Description: Clear Episiotomy Type: None Laceration: Vaginal (left) Suture type: Vicryl Suture size: 3-0 Placenta: Intact, Spontaneous Cord: 3 Vessels Estimated Blood Loss: 400 Resuscitation Needed: Yes : Suctioned, Bulb Syringe, Stimulated, Warmed, [place] Used, Warmer Used Provider: Reba Sahu Score 1 min: 4 Score 5 min: 8 Score 10 min: 9 Second Stage Interventions: Reports: Second Nurse Reviewed Contraction Pattern, Second Nurse Reviewed Heart Tones, Encouragement Given, Laboring Down, Pushing Effectively, Pushing, Knee Chest Position, Pushing, Left Side, Pushing, Pulls Own Legs Back, Pushing, Right Side, Pushing, Stirrups/Leg Supports - General Info Date of Service: 03/11/21 - Patient Data Weight - Most Recent: 92.986 kg I&O - Last 24 Hours: Intake & Output 03/11/21 03/11/21 03/11/21 06:59 14:59 22:59 Intake Total 1000 Output Total 1150 1000 Balance -1150 0 Lab Results Last 24 Hours: Laboratory Results - last 24 hr 03/10/21 03/10/21 03/11/21 Range/Units 20:10 22:40 01:16 WBC 8.79 (4.0-11.0) K/uL RBC 4.00 L (4.30-5.90) M/uL Hgb 11.0 L (12.0-16.0) g/dL Hct 33.5 L (36.0-46.0) % MCV 83.8 (80.0-98.0) fL MCH 27.5 (27.0-32.0) pg MCHC 32.8 (31.0-37.0) g/dL RDW Std Deviation 44.0 (28.0-62.0) fl RDW Coeff of [place] 14 (11.0-15.0) % Plt Count 138 L (150-400) K/uL MPV 12.20 H (7.40-12.00) fL Nucleated RBC % 0.2 /100WBC Nucleated RBCs # 0 K/uL Urine Color YELLOW Urine Appearance CLEAR Urine pH 7.5 (5.0-8.0) Ur Specific [place] 1.020 (1.001-1.035) Urine Protein NEGATIVE (NEGATIVE) mg/dL Urine Glucose (UA) NEGATIVE (NEGATIVE) mg/dL Urine Ketones NEGATIVE (NEGATIVE) mg/dL Urine Occult Blood NEGATIVE (NEGATIVE) Urine Nitrite NEGATIVE (NEGATIVE) Urine Bilirubin NEGATIVE (NEGATIVE) Urine Urobilinogen 0.2 (<2.0) EU/dL Ur Leukocyte Esterase NEGATIVE (NEGATIVE) Urine RBC NONE SEEN (0-2/HPF) Urine WBC 0-2 (0-5/HPF) Ur Epithelial Cells MODERATE (NONE-FEW) Urine Bacteria FEW (NEGATIVE) Urine Mucus LIGHT (NONE-MOD) SARS-CoV-2 RNA (MARY ELLEN) NEGATIVE (NEGATIVE) Blood Type Antibody Screen 03/11/21 Range/Units 01:16 WBC (4.0-11.0) K/uL RBC (4.30-5.90) M/uL Hgb (12.0-16.0) g/dL Hct (36.0-46.0) % MCV (80.0-98.0) fL MCH (27.0-32.0) pg MCHC (31.0-37.0) g/dL RDW Std Deviation (28.0-62.0) fl RDW Coeff of [place] (11.0-15.0) % Plt Count (150-400) K/uL MPV (7.40-12.00) fL Nucleated RBC % /100WBC Nucleated RBCs # K/uL Urine Color Urine Appearance Urine pH (5.0-8.0) Ur Specific [place] (1.001-1.035) Urine Protein (NEGATIVE) mg/dL Urine Glucose (UA) (NEGATIVE) mg/dL Urine Ketones (NEGATIVE) mg/dL Urine Occult Blood (NEGATIVE) Urine Nitrite (NEGATIVE) Urine Bilirubin (NEGATIVE) Urine Urobilinogen (<2.0) EU/dL Ur Leukocyte Esterase (NEGATIVE) Urine RBC (0-2/HPF) Urine WBC (0-5/HPF) Ur Epithelial Cells (NONE-FEW) Urine Bacteria (NEGATIVE) Urine Mucus (NONE-MOD) SARS-CoV-2 RNA (MARY ELLEN) (NEGATIVE) Blood Type A POSITIVE Antibody Screen NEGATIVE Med Orders - Current: Current Medications Butorphanol Tartrate (Butorphanol 1 Mg/Ml Sdv) 1 mg IVPUSH Q1H PRN PRN Reason: Pain (severe 7-10) Carboprost Tromethamine (Carboprost Tromethamine 250 Mcg/1 Ml Amp) 250 mcg IM ASDIRECTED PRN PRN Reason: Post Hemorrhage Ephedrine Sulfate (Ephedrine 50 Mg/Ml Sdv) 10 mg IVPUSH Q5M PRN PRN Reason: Hypotension Fluoxetine HCl (Fluoxetine 20 Mg Cap) 60 mg PO DAILY HELEN Last Admin: 03/11/21 11:20 Dose: 60 mg Documented by: Lactated Ringer's (Ringers, Lactated) 1,000 mls @ 150 mls/hr IV ASDIRECTED HELEN Last Admin: 03/11/21 18:46 Dose: 150 mls/hr Documented by: Oxytocin/Sodium Chloride (Oxytocin 30 Unit/500 Ml-Ns) 30 unit in 500 mls @ 999 mls/hr IV TITRATE HELEN Tranexamic Acid 1,000 mg/ (Sodium Chloride) 110 mls @ 660 mls/hr IV ONETIME PRN PRN Reason: Bleeding Oxytocin/Sodium Chloride (Oxytocin 30 Unit/500 Ml-Ns) 30 unit in 500 mls @ 2 mls/hr IV TITRATE HELEN; Protocol Last Titration: 03/11/21 16:39 Dose: 16 munits/min, 16 mls/hr Documented by: Lidocaine HCl (Lidocaine 1% 50 Ml Mdv) 50 ml INJECT ONETIME PRN PRN Reason: Laceration repair Methylergonovine Maleate (Methylergonovine 0.2 Mg/1 Ml Amp) 0.2 mg IM ASDIRECTED PRN PRN Reason: Post Hemorrhage Misoprostol (Misoprostol 200 Mcg Tab) 200 mcg PO ONETIME PRN PRN Reason: Post Hemorrhage Nalbuphine HCl (Nalbuphine 10 Mg/1 Ml Vial) 10 mg IVPUSH Q1H PRN PRN Reason: Pain (severe 7-10) Ondansetron HCl (Ondansetron 4 Mg/2 Ml Sdv) 4 mg IVPUSH Q6H PRN PRN Reason: Nausea/Vomiting Last Admin: 03/11/21 15:51 Dose: 4 mg Documented by: Sodium Chloride (Sodium Chloride 0.9% 10 Ml Syringe) 10 ml FLUSH ASDIRECTED PRN PRN Reason: Keep Vein Open Sodium Chloride (Sodium Chloride 0.9% 2.5 Ml Syringe) 2.5 ml FLUSH ASDIRECTED PRN PRN Reason: Keep Vein Open Sodium Chloride (Sodium Chloride 0.9% 10 Ml Sdv) 10 ml IV ASDIRECTED PRN PRN Reason: IV Use Sterile Water (Water For Irrigation,Sterile 1,000 Ml Container) 1,000 ml IRR ASDIRECTED PRN PRN Reason: delivery Terbutaline Sulfate (Terbutaline 1 Mg/Ml Sdv) 0.25 mg SUBCUT ASDIRECTED PRN PRN Reason: Tacysystole Discontinued Medications Bupivacaine HCl (Bupivacaine 0.25% 10 Ml Sdv) Confirm Administered Dose 10 ml .ROUTE .STK-MED ONE Stop: 03/11/21 01:38 Bupivacaine HCl (Bupivacaine 0.5% 30 Ml Sdv) Confirm Administered Dose 30 ml .ROUTE .STK-MED ONE Stop: 03/11/21 15:38 Fentanyl (Fentanyl 100 Mcg/2 Ml Sdv) Confirm Administered Dose 100 mcg .ROUTE .STK-MED ONE Stop: 03/11/21 15:37 Ropivacaine (Naropin 0.2%) Confirm Administered Dose 200 mls @ as directed .ROUTE .STK-MED ONE Stop: 03/11/21 01:38 - Exam Urinary Catheter Total Time: 0Days 16Hours - Problem List & Annotations (1) Vaginal delivery SNOMED Code(s): 782216341 Code(s): O80 - ENCOUNTER FOR FULL-TERM UNCOMPLICATED DELIVERY Status: Acute Current Visit: Yes - Problem List Review Problem List Initiated/Reviewed/Updated: Yes - Assessment Assessment:: Pt is 25yo G2 now P1011 s/p at 37w3d gestation. - Plan Plan:: 25 yo at 37w3d s/p Routine cares Encourage ambulation, advance diet as tolerated, pain management continue Prozac 60mg Plan for discharge Monday <Reba Sahu - Last Filed: 03/11/21 21:25> L & D Note - Delivery Note Labor: No: Spontaneous Nuchal Cord: Reduced (after delivery of body) Anesthesia Type: Epidural Laceration: Vaginal Delivery Comments (Free Text/Narrative):: Weight 2840g - Patient Data I&O - Last 24 Hours: Intake & Output 03/11/21 03/11/21 03/11/21 06:59 14:59 22:59 Intake Total 1000 Output Total 1150 1000 Balance -1150 0 Lab Results Last 24 Hours: Laboratory Results - last 24 hr 03/10/21 03/10/21 03/11/21 Range/Units 20:10 22:40 01:16 WBC 8.79 (4.0-11.0) K/uL RBC 4.00 L (4.30-5.90) M/uL Hgb 11.0 L (12.0-16.0) g/dL Hct 33.5 L (36.0-46.0) % MCV 83.8 (80.0-98.0) fL MCH 27.5 (27.0-32.0) pg MCHC 32.8 (31.0-37.0) g/dL RDW Std Deviation 44.0 (28.0-62.0) fl RDW Coeff of [place] 14 (11.0-15.0) % Plt Count 138 L (150-400) K/uL MPV 12.20 H (7.40-12.00) fL Nucleated RBC % 0.2 /100WBC Nucleated RBCs # 0 K/uL Urine RBC NONE SEEN (0-2/HPF) Urine WBC 0-2 (0-5/HPF) Ur Epithelial Cells MODERATE (NONE-FEW) Urine Bacteria FEW (NEGATIVE) Urine Mucus LIGHT (NONE-MOD) SARS-CoV-2 RNA (MARY ELLEN) NEGATIVE (NEGATIVE) Blood Type Antibody Screen 03/11/21 Range/Units 01:16 WBC (4.0-11.0) K/uL RBC (4.30-5.90) M/uL Hgb (12.0-16.0) g/dL Hct (36.0-46.0) % MCV (80.0-98.0) fL MCH (27.0-32.0) pg MCHC (31.0-37.0) g/dL RDW Std Deviation (28.0-62.0) fl RDW Coeff of [place] (11.0-15.0) % Plt Count (150-400) K/uL MPV (7.40-12.00) fL Nucleated RBC % /100WBC Nucleated RBCs # K/uL Urine RBC (0-2/HPF) Urine WBC (0-5/HPF) Ur Epithelial Cells (NONE-FEW) Urine Bacteria (NEGATIVE) Urine Mucus (NONE-MOD) SARS-CoV-2 RNA (MARY ELLEN) (NEGATIVE) Blood Type A POSITIVE Antibody Screen NEGATIVE Med Orders - Current: Current Medications Acetaminophen (Acetaminophen 500 Mg Tab) 1,000 mg PO Q6H PRN PRN Reason: Pain (mild 1-3) Benzocaine/Menthol (Benzocaine/Menthol 20%-0.5% [place] 78 Gm Cannister) 0 gm TOP ASDIRECTED PRN PRN Reason: Perineal Comfort Measure Bisacodyl (Bisacodyl 10 Mg Supp) 10 mg RECTAL ONETIME PRN PRN Reason: Constipation Butorphanol Tartrate (Butorphanol 1 Mg/Ml Sdv) 1 mg IVPUSH Q1H PRN PRN Reason: Pain (severe 7-10) Carboprost Tromethamine (Carboprost Tromethamine 250 Mcg/1 Ml Amp) 250 mcg IM ASDIRECTED PRN PRN Reason: Post Hemorrhage Docusate Sodium (Docusate Sodium 100 Mg Cap) 100 mg PO Q12H PRN PRN Reason: Constipation Emollient Ointment (Lanolin 100% Cream 7 Gm Tube) 0 gm TOP ASDIRECTED PRN PRN Reason: Sore Nipples Ephedrine Sulfate (Ephedrine 50 Mg/Ml Sdv) 10 mg IVPUSH Q5M PRN PRN Reason: Hypotension Fluoxetine HCl (Fluoxetine 20 Mg Cap) 60 mg PO DAILY PENDING SALE TO [facility] Last Admin: 03/11/21 11:20 Dose: 60 mg Documented by: Fluoxetine HCl (Fluoxetine 20 Mg Cap) 60 mg PO DAILY PENDING SALE TO [facility] Lactated Ringer's (Ringers, Lactated) 1,000 mls @ 150 mls/hr IV ASDIRECTED PENDING SALE TO [facility] Last Admin: 03/11/21 18:46 Dose: 150 mls/hr Documented by: Oxytocin/Sodium Chloride (Oxytocin 30 Unit/500 Ml-Ns) 30 unit in 500 mls @ 999 mls/hr IV TITRATE PENDING SALE TO [facility] Tranexamic Acid 1,000 mg/ (Sodium Chloride) 110 mls @ 660 mls/hr IV ONETIME PRN PRN Reason: Bleeding Oxytocin/Sodium Chloride (Oxytocin 30 Unit/500 Ml-Ns) 30 unit in 500 mls @ 2 mls/hr IV TITRATE HELEN; Protocol Last Titration: 03/11/21 16:39 Dose: 16 munits/min, 16 mls/hr Documented by: Ibuprofen (Ibuprofen 800 Mg Tab) 800 mg PO Q8H PRN PRN Reason: Pain (mild 1-3) Lidocaine HCl (Lidocaine 1% 50 Ml Mdv) 50 ml INJECT ONETIME PRN PRN Reason: Laceration repair Measles/Mumps/Rubella Vaccine Live (Measles, Mumps & Rubella Vaccine 0.5 Ml Sdv) 0.5 ml SUBCUT .ONCE ONE Stop: 03/11/21 21:18 Methylergonovine Maleate (Methylergonovine 0.2 Mg/1 Ml Amp) 0.2 mg IM ASDIRECTED PRN PRN Reason: Post Hemorrhage Misoprostol (Misoprostol 200 Mcg Tab) 200 mcg PO ONETIME PRN PRN Reason: Post Hemorrhage Nalbuphine HCl (Nalbuphine 10 Mg/1 Ml Vial) 10 mg IVPUSH Q1H PRN PRN Reason: Pain (severe 7-10) Ondansetron HCl (Ondansetron 4 Mg/2 Ml Sdv) 4 mg IVPUSH Q6H PRN PRN Reason: Nausea/Vomiting Last Admin: 03/11/21 15:51 Dose: 4 mg Documented by: Oxycodone HCl (Oxycodone 5 Mg Tab) 5 mg PO Q2H PRN PRN Reason: Pain (severe 7-10) Sodium Chloride (Sodium Chloride 0.9% 10 Ml Syringe) 10 ml FLUSH ASDIRECTED PRN PRN Reason: Keep Vein Open Sodium Chloride (Sodium Chloride 0.9% 2.5 Ml Syringe) 2.5 ml FLUSH ASDIRECTED PRN PRN Reason: Keep Vein Open Sodium Chloride (Sodium Chloride 0.9% 10 Ml Sdv) 10 ml IV ASDIRECTED PRN PRN Reason: IV Use Sterile Water (Water For Irrigation,Sterile 1,000 Ml Container) 1,000 ml IRR ASDIRECTED PRN PRN Reason: delivery Terbutaline Sulfate (Terbutaline 1 Mg/Ml Sdv) 0.25 mg SUBCUT ASDIRECTED PRN PRN Reason: Tacysystole Witch Elvira (Witch Elvira Medicated Pads 40/Jar) 1 pad TOP ASDIRECTED PRN PRN Reason: comfort care Discontinued Medications Bupivacaine HCl (Bupivacaine 0.25% 10 Ml Sdv) Confirm Administered Dose 10 ml .ROUTE .STK-MED ONE Stop: 03/11/21 01:38 Bupivacaine HCl (Bupivacaine 0.5% 30 Ml Sdv) Confirm Administered Dose 30 ml .ROUTE .STK-MED ONE Stop: 03/11/21 15:38 Fentanyl (Fentanyl 100 Mcg/2 Ml Sdv) Confirm Administered Dose 100 mcg .ROUTE .STK-MED ONE Stop: 03/11/21 15:37 Ropivacaine (Naropin 0.2%) Confirm Administered Dose 200 mls @ as directed .ROUTE .STK-MED ONE Stop: 03/11/21 01:38 - Problem List & Annotations (1) Vaginal delivery SNOMED Code(s): 083717893 Code(s): O80 - ENCOUNTER FOR FULL-TERM UNCOMPLICATED DELIVERY Status: Acute Current Visit: Yes - My Orders Last 24 Hours: My Active Orders 03/11/21 Breakfast Regular Diet [DIET] 03/11/21 09:45 FLUoxetine [PROzac] 60 mg PO DAILY 03/11/21 21:17 Patient Status [ADT] Routine May Shower [RC] ASDIRECTED Notify Provider Vital Signs [RC] ASDIRECTED Up ad Benita [RC] ASDIRECTED Vital Signs [RC] PER UNIT ROUTINE BLOOD GAS ARTERIAL UMBILICAL [BG] Urgent BLOOD GAS VENOUS UMBILICAL [BG] Urgent Acetaminophen [Tylenol Extra Strength] 1,000 mg PO Q6H PRN Benzocaine/Menthol [Dermoplast Pain Relief 20%-0.5% [place]] 0 gm TOP ASDIRECTED PRN Docusate Sodium [Colace] 100 mg PO Q12H PRN Ibuprofen [Motrin] 800 mg PO Q8H PRN Lanolin [Lansinoh HPA] See Dose Instructions TOP ASDIRECTED PRN Measles, Mumps & Rubella [M-M-R II Vaccine] 0.5 ml SUBCUT .ONCE ONE bisacodyL [Dulcolax] 10 mg RECTAL ONETIME PRN oxyCODONE 5 mg PO Q2H PRN witch Elvira [Tucks] 1 pad TOP ASDIRECTED PRN Assess Lochia [WOMSER] Per Unit Routine Assess Uterine Involution [WOMSER] Per Unit Routine Breast Pump [WOMSER] Per Unit Routine Peripheral IV Discontinue [OM.PC] Routine 03/11/21 21:19 Ice Therapy [OM.PC] Per Unit Routine Perineal Care [OM.PC] Per Unit Routine Sitz Bath [OM.PC] Per Unit Routine 03/11/21 21:20 Cooling Warming Measures [RC] ASDIRECTED 03/12/21 05:11 HEMOGLOBIN/HEMATOCRIT,HH [HEME] Timed 03/12/21 09:00 FLUoxetine [PROzac] 60 mg PO DAILY - Plan Plan:: I have reviewed and agree with the above. I was present for the delivery of this live female .
[2021-03-11] MEDS ORDERED: Docusate Sodium 100 MG Cap PO PRN (21:17)
[2021-03-11] MEDS ORDERED: Benzocaine/Menthol 20%-0.5% Spray 78 GM Cannister TOP PRN (21:17)
[2021-03-11] MEDS ORDERED: Measles, Mumps & Rubella Vaccine 0.5 ML SDV SUBCUT ONE (21:17)
[2021-03-11] MEDS ORDERED: Witch Hazel Medicated Pads 40/Jar TOP PRN (21:17)
[2021-03-11] MEDS ORDERED: Ibuprofen 800 MG Tab PO PRN (21:17)
[2021-03-11] MEDS ORDERED: Bisacodyl 10 MG Supp RECTAL PRN (21:17)
[2021-03-11] MEDS ORDERED: oxyCODONE 5 MG Tab PO PRN (21:17)
[2021-03-11] MEDS ORDERED: Lanolin 100% Cream 7 GM Tube TOP PRN (21:17)
--- NOTE | 2021-03-11 22:11 | OR ---
SURGEON: Reba Sahu MD DATE OF PROCEDURE: 03/11/2021 PREOPERATIVE DIAGNOSES: 1. A 25-year-old, G2, P 0-0-1-0 at 37 weeks and 2 days gestation. 2. Augmentation of labor. 3. GBS negative. POSTOPERATIVE DIAGNOSES: 1. A 25-year-old, G2, P 1-0-1-1 at 37 weeks and 3 days gestation. 2. Augmentation of labor. 3. GBS negative. PROCEDURE: Spontaneous vaginal delivery and repair of vaginal laceration. PRIMARY SURGEON: Reba Sahu MD FLEET OPERATIONS MANAGER: Ela Mccoy. ANESTHESIA: Epidural. ESTIMATED BLOOD LOSS: 400 mL. FINDINGS: Live female in right occiput anterior position. scores 4 and 8 at one and five minutes respectively. Weight 2840 g. Nuchal cord x4. Left perineal laceration. Placenta intact with 3-vessel cord. INDICATIONS: This is a 25-year-old, G2, P 0-0-1-0, who presented at 37 weeks and 2 days' gestation complaining of contractions. On presentation, her cervix was found to be 3 cm dilated and she was chris. After several hours of no change, the decision was made to augment labor with Pitocin. She continued to have no change but was painfully chris, received an epidural for pain control. She underwent artificial rupture of membranes with clear fluid noted. Throughout the course of the day, she progressed to complete cervical dilation. She pushed for approximately 90 minutes before I was called to the room. DESCRIPTION OF PROCEDURE: I arrived to the room with the head at +2 station. I evaluated the head and noted the positioning to be left occiput transverse. Over the next couple of contractions, the head was manually rotated to left occiput anterior position. The patient continued to push for the next 30 minutes and subsequently delivered a live female infant. The head was delivered followed by the shoulders and remainder of the body. Nuchal cord x4 was reduced after delivery of body. The cord was clamped and cut and the infant was taken to the warmer for evaluation by the nurse. Cord blood and cord gases were obtained. The placenta then delivered intact with 3-vessel cord via the Gross-Abbasi maneuver. The perineum was inspected and a left vaginal laceration was noted. This was repaired to anatomy and hemostasis with 3-0 Vicryl. Fundus was firm below the umbilicus with minimal bleeding. The patient and infant tolerated the delivery well. [id number] / MODL /[id number] MTDD
--- NOTE | 2021-03-12 07:54 | PCM.PNPP ---
<NadineEla - Last Filed: 03/12/21 07:48> - General Info Date of Service: 03/12/21 Subjective Update: Pt doing well. Pain controlled on current pain regimen. Urinating okay. No difficulties ambulating. No fever/chills/CP/SOB Functional Status: Reports: Pain Controlled - Review of Systems General: Reports: No Symptoms Pulmonary: Reports: No Symptoms Cardiovascular: Reports: No Symptoms Gastrointestinal: Reports: No Symptoms Genitourinary: Reports: No Symptoms Skin: Reports: No Symptoms - General Info Date of Service: 03/12/21 - Patient Data Vital Signs - Most Recent: Last Vital Signs Temp Pulse Resp 14 03/12/21 01:00 BP 110/71 03/12/21 01:00 Pulse Ox 94 L 03/12/21 01:00 Weight - Most Recent: 92.986 kg I&O - Last 24 Hours: Intake & Output 03/11/21 03/12/21 03/12/21 22:59 06:59 14:59 Intake Total 1000 Output Total 1000 Balance 0 Lab Results - Last 24 Hours: Laboratory Results - last 24 hr 03/11/21 03/12/21 Range/Units 20:50 06:46 Hgb 11.3 L (12.0-16.0) g/dL Hct 34.9 L (36.0-46.0) % Cord ABG pH 7.167 L (7.18-7.38) Cord ABG Base Excess -8 (-10--2) Cord VBG pH 7.289 (7.25-7.45) Cord VBG Base Excess -5 (-10--2) Med Orders - Current: Current Medications Acetaminophen (Acetaminophen 500 Mg Tab) 1,000 mg PO Q6H PRN PRN Reason: Pain (mild 1-3) Benzocaine/Menthol (Benzocaine/Menthol 20%-0.5% [place] 78 Gm Cannister) 0 gm TOP ASDIRECTED PRN PRN Reason: Perineal Comfort Measure Last Admin: 03/12/21 01:13 Dose: 78 gm Documented by: Bisacodyl (Bisacodyl 10 Mg Supp) 10 mg RECTAL ONETIME PRN PRN Reason: Constipation Butorphanol Tartrate (Butorphanol 1 Mg/Ml Sdv) 1 mg IVPUSH Q1H PRN PRN Reason: Pain (severe 7-10) Carboprost Tromethamine (Carboprost Tromethamine 250 Mcg/1 Ml Amp) 250 mcg IM ASDIRECTED PRN PRN Reason: Post Hemorrhage Docusate Sodium (Docusate Sodium 100 Mg Cap) 100 mg PO Q12H PRN PRN Reason: Constipation Emollient Ointment (Lanolin 100% Cream 7 Gm Tube) 0 gm TOP ASDIRECTED PRN PRN Reason: Sore Nipples Last Admin: 03/12/21 01:14 Dose: 7 gm Documented by: Ephedrine Sulfate (Ephedrine 50 Mg/Ml Sdv) 10 mg IVPUSH Q5M PRN PRN Reason: Hypotension Fluoxetine HCl (Fluoxetine 20 Mg Cap) 60 mg PO DAILY [facility] Last Admin: 03/11/21 11:20 Dose: 60 mg Documented by: Fluoxetine HCl (Fluoxetine 20 Mg Cap) 60 mg PO DAILY [facility] Lactated Ringer's (Ringers, Lactated) 1,000 mls @ 150 mls/hr IV ASDIRECTED HELEN Last Admin: 03/11/21 18:46 Dose: 150 mls/hr Documented by: Oxytocin/Sodium Chloride (Oxytocin 30 Unit/500 Ml-Ns) 30 unit in 500 mls @ 999 mls/hr IV TITRATE HELEN Tranexamic Acid 1,000 mg/ (Sodium Chloride) 110 mls @ 660 mls/hr IV ONETIME PRN PRN Reason: Bleeding Oxytocin/Sodium Chloride (Oxytocin 30 Unit/500 Ml-Ns) 30 unit in 500 mls @ 2 mls/hr IV TITRATE [facility]; Protocol Last Titration: 03/11/21 16:39 Dose: 16 munits/min, 16 mls/hr Documented by: Ibuprofen (Ibuprofen 800 Mg Tab) 800 mg PO Q8H PRN PRN Reason: Pain (mild 1-3) Lidocaine HCl (Lidocaine 1% 50 Ml Mdv) 50 ml INJECT ONETIME PRN PRN Reason: Laceration repair Methylergonovine Maleate (Methylergonovine 0.2 Mg/1 Ml Amp) 0.2 mg IM ASDIRECTED PRN PRN Reason: Post Hemorrhage Misoprostol (Misoprostol 200 Mcg Tab) 200 mcg PO ONETIME PRN PRN Reason: Post Hemorrhage Nalbuphine HCl (Nalbuphine 10 Mg/1 Ml Vial) 10 mg IVPUSH Q1H PRN PRN Reason: Pain (severe 7-10) Ondansetron HCl (Ondansetron 4 Mg/2 Ml Sdv) 4 mg IVPUSH Q6H PRN PRN Reason: Nausea/Vomiting Last Admin: 03/11/21 15:51 Dose: 4 mg Documented by: Oxycodone HCl (Oxycodone 5 Mg Tab) 5 mg PO Q2H PRN PRN Reason: Pain (severe 7-10) Sodium Chloride (Sodium Chloride 0.9% 10 Ml Syringe) 10 ml FLUSH ASDIRECTED PRN PRN Reason: Keep Vein Open Sodium Chloride (Sodium Chloride 0.9% 2.5 Ml Syringe) 2.5 ml FLUSH ASDIRECTED PRN PRN Reason: Keep Vein Open Sodium Chloride (Sodium Chloride 0.9% 10 Ml Sdv) 10 ml IV ASDIRECTED PRN PRN Reason: IV Use Sterile Water (Water For Irrigation,Sterile 1,000 Ml Container) 1,000 ml IRR ASDIRECTED PRN PRN Reason: delivery Terbutaline Sulfate (Terbutaline 1 Mg/Ml Sdv) 0.25 mg SUBCUT ASDIRECTED PRN PRN Reason: Tacysystole Witch Elvira (Witch Elvira Medicated Pads 40/Jar) 1 pad TOP ASDIRECTED PRN PRN Reason: comfort care Last Admin: 03/12/21 01:12 Dose: 1 pad Documented by: Discontinued Medications Bupivacaine HCl (Bupivacaine 0.25% 10 Ml Sdv) Confirm Administered Dose 10 ml .ROUTE .STK-MED ONE Stop: 03/11/21 01:38 Bupivacaine HCl (Bupivacaine 0.5% 30 Ml Sdv) Confirm Administered Dose 30 ml .ROUTE .STK-MED ONE Stop: 03/11/21 15:38 Fentanyl (Fentanyl 100 Mcg/2 Ml Sdv) Confirm Administered Dose 100 mcg .ROUTE .STK-MED ONE Stop: 03/11/21 15:37 Ropivacaine (Naropin 0.2%) Confirm Administered Dose 200 mls @ as directed .ROUTE .STK-MED ONE Stop: 03/11/21 01:38 Measles/Mumps/Rubella Vaccine Live (Measles, Mumps & Rubella Vaccine 0.5 Ml Sdv) 0.5 ml SUBCUT .ONCE ONE Stop: 03/11/21 21:18 - Interaction Infant Disposition, : to Nursery Infant Interaction: To Nursery to Visit Support Person: - Recovery Exam Fundal Tone: Firm Fundal Level: At Umbilicus Fundal Placement: Midline Lochia Amount: Scant Perineum Description: Intact, Minimal Bruising/Swelling Episiotomy/Laceration: Approximated Bladder Status: Voiding Urinary Elimination: Voided - Exam General: Alert, Oriented Skin: Warm, Dry, Intact Wound/Incisions: Healing Well Psy/Mental Status: Alert, Normal Affect, Normal Mood - Problem List & Annotations (1) Vaginal delivery SNOMED Code(s): 626565255 Code(s): O80 - ENCOUNTER FOR FULL-TERM UNCOMPLICATED DELIVERY Status: Acute Current Visit: Yes - Problem List Review Problem List Initiated/Reviewed/Updated: Yes - Assessment Assessment:: Pt is 25yo G2 now P1011 s/p at 37w3d gestation. PPD#1 recovering well - Plan Plan:: Routine cares Encourage ambulation Diet as tolerated Plan for discharge tomorrow <Nabeel Elise - Last Filed: 03/12/21 18:04> - General Info Subjective Update: Patient seen at bedside , she denies any complains. Normal lochia - Patient Data Vital Signs - Most Recent: Last Vital Signs Temp 35.8 C L 03/12/21 17:00 Pulse 81 03/12/21 17:00 Resp 16 03/12/21 17:00 BP 112/67 03/12/21 17:00 Pulse Ox 97 03/12/21 17:00 Lab Results - Last 24 Hours: Laboratory Results - last 24 hr 03/11/21 03/11/21 03/12/21 Range/Units 01:16 20:50 06:46 Hgb 11.3 L (12.0-16.0) g/dL Hct 34.9 L (36.0-46.0) % Cord ABG pH 7.167 L (7.18-7.38) Cord ABG Base Excess -8 (-10--2) Cord VBG pH 7.289 (7.25-7.45) Cord VBG Base Excess -5 (-10--2) RPR Non-Reac (Non-Reac) Med Orders - Current: Current Medications Acetaminophen (Acetaminophen 500 Mg Tab) 1,000 mg PO Q6H PRN PRN Reason: Pain (mild 1-3) Last Admin: 03/12/21 17:10 Dose: 1,000 mg Documented by: Benzocaine/Menthol (Benzocaine/Menthol 20%-0.5% Binford 78 Gm Cannister) 0 gm TOP ASDIRECTED PRN PRN Reason: Perineal Comfort Measure Last Admin: 03/12/21 01:13 Dose: 78 gm Documented by: Bisacodyl (Bisacodyl 10 Mg Supp) 10 mg RECTAL ONETIME PRN PRN Reason: Constipation Butorphanol Tartrate (Butorphanol 1 Mg/Ml Sdv) 1 mg IVPUSH Q1H PRN PRN Reason: Pain (severe 7-10) Carboprost Tromethamine (Carboprost Tromethamine 250 Mcg/1 Ml Amp) 250 mcg IM ASDIRECTED PRN PRN Reason: Post Hemorrhage Docusate Sodium (Docusate Sodium 100 Mg Cap) 100 mg PO Q12H PRN PRN Reason: Constipation Emollient Ointment (Lanolin 100% Cream 7 Gm Tube) 0 gm TOP ASDIRECTED PRN PRN Reason: Sore Nipples Last Admin: 03/12/21 01:14 Dose: 7 gm Documented by: Ephedrine Sulfate (Ephedrine 50 Mg/Ml Sdv) 10 mg IVPUSH Q5M PRN PRN Reason: Hypotension Fluoxetine HCl (Fluoxetine 20 Mg Cap) 60 mg PO DAILY [facility] Last Admin: 03/12/21 09:42 Dose: 60 mg Documented by: Lactated Ringer's (Ringers, Lactated) 1,000 mls @ 150 mls/hr IV ASDIRECTED HELEN Last Admin: 03/11/21 18:46 Dose: 150 mls/hr Documented by: Oxytocin/Sodium Chloride (Oxytocin 30 Unit/500 Ml-Ns) 30 unit in 500 mls @ 999 mls/hr IV TITRATE [facility] Tranexamic Acid 1,000 mg/ (Sodium Chloride) 110 mls @ 660 mls/hr IV ONETIME PRN PRN Reason: Bleeding Oxytocin/Sodium Chloride (Oxytocin 30 Unit/500 Ml-Ns) 30 unit in 500 mls @ 2 mls/hr IV TITRATE [facility]; Protocol Last Titration: 03/11/21 16:39 Dose: 16 munits/min, 16 mls/hr Documented by: Ibuprofen (Ibuprofen 800 Mg Tab) 800 mg PO Q8H PRN PRN Reason: Pain (mild 1-3) Lidocaine HCl (Lidocaine 1% 50 Ml Mdv) 50 ml INJECT ONETIME PRN PRN Reason: Laceration repair Methylergonovine Maleate (Methylergonovine 0.2 Mg/1 Ml Amp) 0.2 mg IM ASDIRECTED PRN PRN Reason: Post Hemorrhage Misoprostol (Misoprostol 200 Mcg Tab) 200 mcg PO ONETIME PRN PRN Reason: Post Hemorrhage Nalbuphine HCl (Nalbuphine 10 Mg/1 Ml Vial) 10 mg IVPUSH Q1H PRN PRN Reason: Pain (severe 7-10) Ondansetron HCl (Ondansetron 4 Mg/2 Ml Sdv) 4 mg IVPUSH Q6H PRN PRN Reason: Nausea/Vomiting Last Admin: 03/11/21 15:51 Dose: 4 mg Documented by: Oxycodone HCl (Oxycodone 5 Mg Tab) 5 mg PO Q2H PRN PRN Reason: Pain (severe 7-10) Sodium Chloride (Sodium Chloride 0.9% 10 Ml Syringe) 10 ml FLUSH ASDIRECTED PRN PRN Reason: Keep Vein Open Sodium Chloride (Sodium Chloride 0.9% 2.5 Ml Syringe) 2.5 ml FLUSH ASDIRECTED PRN PRN Reason: Keep Vein Open Sodium Chloride (Sodium Chloride 0.9% 10 Ml Sdv) 10 ml IV ASDIRECTED PRN PRN Reason: IV Use Sterile Water (Water For Irrigation,Sterile 1,000 Ml Container) 1,000 ml IRR ASDIRECTED PRN PRN Reason: delivery Terbutaline Sulfate (Terbutaline 1 Mg/Ml Sdv) 0.25 mg SUBCUT ASDIRECTED PRN PRN Reason: Tacysystole Witch Elvira (Witch Elvira Medicated Pads 40/Jar) 1 pad TOP ASDIRECTED PRN PRN Reason: comfort care Last Admin: 03/12/21 01:12 Dose: 1 pad Documented by: Discontinued Medications Bupivacaine HCl (Bupivacaine 0.25% 10 Ml Sdv) Confirm Administered Dose 10 ml .ROUTE .STK-MED ONE Stop: 03/11/21 01:38 Bupivacaine HCl (Bupivacaine 0.5% 30 Ml Sdv) Confirm Administered Dose 30 ml .ROUTE .STK-MED ONE Stop: 03/11/21 15:38 Fentanyl (Fentanyl 100 Mcg/2 Ml Sdv) Confirm Administered Dose 100 mcg .ROUTE .STK-MED ONE Stop: 03/11/21 15:37 Ropivacaine (Naropin 0.2%) Confirm Administered Dose 200 mls @ as directed .ROUTE .STK-MED ONE Stop: 03/11/21 01:38 Measles/Mumps/Rubella Vaccine Live (Measles, Mumps & Rubella Vaccine 0.5 Ml Sdv) 0.5 ml SUBCUT .ONCE ONE Stop: 03/11/21 21:18 - Problem List & Annotations (1) Vaginal delivery SNOMED Code(s): 795747123 Code(s): O80 - ENCOUNTER FOR FULL-TERM UNCOMPLICATED DELIVERY Status: Acute Current Visit: Yes - Assessment Assessment:: agree with assessment - Plan Plan:: Agree to plan
[2021-03-12] MEDS ORDERED: FLUoxetine 20 MG Cap PO SCH (09:00)
[2021-03-12] MEDS: Acetaminophen 500 MG Tab PO PRN ×2 (09:40→17:10)
[2021-03-12] MEDS: FLUoxetine 20 MG Cap PO SCH (09:42)
--- NOTE | 2021-03-13 06:54 | PCM.PNPP ---
- General Info Date of Service: 03/13/21 Admission Dx/Problem (Free Text): Patient Status Order with Admit Dx/Problem 03/10/21 20:05 Patient Status [ADT] Routine 03/11/21 00:46 Patient Status [ADT] Routine Admission Diagnosis/Problem Admission Diagnosis/Problem Subjective Update: Resting comfortably in bed during rounds. Pain well controlled. Ambulating and voiding without difficulty. Lochia decreasing. Reports occasional "baby blues." Denies suicidal or homicidal ideation. and pumping for baby who has had difficulty keeping her blood glucose levels within normal ranges. - General Info Date of Service: 03/13/21 - Patient Data Vital Signs - Most Recent: Last Vital Signs Temp 98 F 03/13/21 05:55 Pulse 64 03/13/21 05:55 Resp 18 03/13/21 05:55 BP 117/80 03/13/21 05:55 Pulse Ox 96 03/13/21 05:55 Weight - Most Recent: 205 lb Lab Results - Last 24 Hours: Laboratory Results - last 24 hr 03/11/21 03/12/21 Range/Units 01:16 06:46 Hgb 11.3 L (12.0-16.0) g/dL Hct 34.9 L (36.0-46.0) % RPR Non-Reac (Non-Reac) Med Orders - Current: Current Medications Acetaminophen (Acetaminophen 500 Mg Tab) 1,000 mg PO Q6H PRN PRN Reason: Pain (mild 1-3) Last Admin: 03/12/21 17:10 Dose: 1,000 mg Documented by: Benzocaine/Menthol (Benzocaine/Menthol 20%-0.5% [place] 78 Gm Cannister) 0 gm TOP ASDIRECTED PRN PRN Reason: Perineal Comfort Measure Last Admin: 03/12/21 01:13 Dose: 78 gm Documented by: Bisacodyl (Bisacodyl 10 Mg Supp) 10 mg RECTAL ONETIME PRN PRN Reason: Constipation Butorphanol Tartrate (Butorphanol 1 Mg/Ml Sdv) 1 mg IVPUSH Q1H PRN PRN Reason: Pain (severe 7-10) Carboprost Tromethamine (Carboprost Tromethamine 250 Mcg/1 Ml Amp) 250 mcg IM ASDIRECTED PRN PRN Reason: Post Hemorrhage Docusate Sodium (Docusate Sodium 100 Mg Cap) 100 mg PO Q12H PRN PRN Reason: Constipation Emollient Ointment (Lanolin 100% Cream 7 Gm Tube) 0 gm TOP ASDIRECTED PRN PRN Reason: Sore Nipples Last Admin: 03/12/21 01:14 Dose: 7 gm Documented by: Ephedrine Sulfate (Ephedrine 50 Mg/Ml Sdv) 10 mg IVPUSH Q5M PRN PRN Reason: Hypotension Fluoxetine HCl (Fluoxetine 20 Mg Cap) 60 mg PO DAILY [facility] Last Admin: 03/12/21 09:42 Dose: 60 mg Documented by: Lactated Ringer's (Ringers, Lactated) 1,000 mls @ 150 mls/hr IV ASDIRECTED HELEN Last Admin: 03/11/21 18:46 Dose: 150 mls/hr Documented by: Oxytocin/Sodium Chloride (Oxytocin 30 Unit/500 Ml-Ns) 30 unit in 500 mls @ 999 mls/hr IV TITRATE [facility] Tranexamic Acid 1,000 mg/ (Sodium Chloride) 110 mls @ 660 mls/hr IV ONETIME PRN PRN Reason: Bleeding Oxytocin/Sodium Chloride (Oxytocin 30 Unit/500 Ml-Ns) 30 unit in 500 mls @ 2 mls/hr IV TITRATE [facility]; Protocol Last Titration: 03/11/21 16:39 Dose: 16 munits/min, 16 mls/hr Documented by: Ibuprofen (Ibuprofen 800 Mg Tab) 800 mg PO Q8H PRN PRN Reason: Pain (mild 1-3) Lidocaine HCl (Lidocaine 1% 50 Ml Mdv) 50 ml INJECT ONETIME PRN PRN Reason: Laceration repair Methylergonovine Maleate (Methylergonovine 0.2 Mg/1 Ml Amp) 0.2 mg IM ASDIRECTED PRN PRN Reason: Post Hemorrhage Misoprostol (Misoprostol 200 Mcg Tab) 200 mcg PO ONETIME PRN PRN Reason: Post Hemorrhage Nalbuphine HCl (Nalbuphine 10 Mg/1 Ml Vial) 10 mg IVPUSH Q1H PRN PRN Reason: Pain (severe 7-10) Ondansetron HCl (Ondansetron 4 Mg/2 Ml Sdv) 4 mg IVPUSH Q6H PRN PRN Reason: Nausea/Vomiting Last Admin: 03/11/21 15:51 Dose: 4 mg Documented by: Oxycodone HCl (Oxycodone 5 Mg Tab) 5 mg PO Q2H PRN PRN Reason: Pain (severe 7-10) Sodium Chloride (Sodium Chloride 0.9% 10 Ml Syringe) 10 ml FLUSH ASDIRECTED PRN PRN Reason: Keep Vein Open Sodium Chloride (Sodium Chloride 0.9% 2.5 Ml Syringe) 2.5 ml FLUSH ASDIRECTED PRN PRN Reason: Keep Vein Open Sodium Chloride (Sodium Chloride 0.9% 10 Ml Sdv) 10 ml IV ASDIRECTED PRN PRN Reason: IV Use Sterile Water (Water For Irrigation,Sterile 1,000 Ml Container) 1,000 ml IRR ASDIRECTED PRN PRN Reason: delivery Terbutaline Sulfate (Terbutaline 1 Mg/Ml Sdv) 0.25 mg SUBCUT ASDIRECTED PRN PRN Reason: Tacysystole Witch Elvira (Witch Elvira Medicated Pads 40/Jar) 1 pad TOP ASDIRECTED PRN PRN Reason: comfort care Last Admin: 03/12/21 01:12 Dose: 1 pad Documented by: Discontinued Medications Bupivacaine HCl (Bupivacaine 0.25% 10 Ml Sdv) Confirm Administered Dose 10 ml .ROUTE .STK-MED ONE Stop: 03/11/21 01:38 Bupivacaine HCl (Bupivacaine 0.5% 30 Ml Sdv) Confirm Administered Dose 30 ml .ROUTE .STK-MED ONE Stop: 03/11/21 15:38 Fentanyl (Fentanyl 100 Mcg/2 Ml Sdv) Confirm Administered Dose 100 mcg .ROUTE .STK-MED ONE Stop: 03/11/21 15:37 Ropivacaine (Naropin 0.2%) Confirm Administered Dose 200 mls @ as directed .ROUTE .STK-MED ONE Stop: 03/11/21 01:38 Measles/Mumps/Rubella Vaccine Live (Measles, Mumps & Rubella Vaccine 0.5 Ml Sdv) 0.5 ml SUBCUT .ONCE ONE Stop: 03/11/21 21:18 - Infant Interaction Infant Disposition, : to Nursery Infant Feeding: Breastfed Infant; Nursed Well (pumping due to baby in nursery) Support Person: - Recovery Exam Fundal Tone: Firm Fundal Level: 1 Fingerbreadths Below Umbilicus Fundal Placement: Midline Lochia Amount: Scant Lochia Color: Rubra/Red Perineum Description: Intact, Minimal Bruising/Swelling, Other (see below) Other Perinuem Description: Vaginal lacerations Episiotomy/Laceration: None Bladder Status: Voiding Urinary Elimination: Voided - Exam General: Alert Lungs: Normal Respiratory Effort Cardiovascular: Regular Rate GI/Abdominal Exam: Soft, Non-Tender Extremities: Normal Range of Motion, Non-Tender, No Pedal Edema Skin: Warm, Dry, Intact Neurological: No New Focal Deficit Psy/Mental Status: Normal Mood - Problem List Review Problem List Initiated/Reviewed/Updated: Yes - Assessment Assessment:: 25 year old PPD #2 s/p - Plan Plan:: Routine cares * Encourage ambulation and fluid intake * Regular diet as tolerated * PO pain medications PRN * /pumping, nursing assistance PRN Depression/anxiety * Continue medical therapy * Denies SI/HI today * Has f/u for mood scheduled in 3-5 days at [facility] Dispo: stable. Anticipate discharge today pending maternal/ status. Reviewed discharge instructions/precautions.
[2021-03-13] MEDS: FLUoxetine 20 MG Cap PO SCH (08:26)
[2021-03-13] MEDS: Acetaminophen 500 MG Tab PO PRN (20:57)
== END 2021-03-13 23:36 | disposition home or self-care (01) | DRG 560 ==
LOC: MW.OBCHECK 19:59 → MW.OB 19:59 → MW.OBCHECK 03-11 00:46 → MW.OB 03-11 00:46 → OBSVTOIN 03-11 21:17 → MW.OB 03-12 00:20
PROVIDERS: ADMIT Obstetrics & Gynecology; ATTEND Obstetrics & Gynecology
PROC: 10E0XZZ Delivery of Products of Conception, External Approach (ICD-10-PCS; principal; 2021-03-11)
PROC: 10907ZC Drainage of Amniotic Fluid, Therapeutic from Products of Conception, Via Natural or Artificial Opening (ICD-10-PCS; 2021-03-11)
PROC: 0UQGXZZ Repair Vagina, External Approach (ICD-10-PCS; 2021-03-11)
PROC: 4A1HXCZ Monitoring of Products of Conception, Cardiac Rate, External Approach (ICD-10-PCS; 2021-03-11)
DX: O69.81X0 Labor and delivery complicated by cord around neck, without compression, not applicable or unspecified (principal); Z3A.37 37 weeks gestation of pregnancy; Z37.0 Single live birth; Z20.822 Contact with and (suspected) exposure to COVID-19
CPT/HCPCS: 01967; 36415; 51702; 59025; 59409; 81001; 82803; 85014; 85018; 85027; 86592; 86850; 86900; 86901; A9270-GY; J2405; J2590; J2795; J3010; J3490; J7120; U0002

== ENCOUNTER 2022-08-02 12:12 | Emergency (ER) | payer BC ==
[2022-08-02] MEDS ORDERED: Sodium Chloride 0.9% 1,000 ML IV ONE (12:56)
[2022-08-02] MEDS ORDERED: Ondansetron 4 MG/2 ML SDV IVPUSH ONE (12:58)
[2022-08-02] MEDS ORDERED: Morphine 2 MG/ML SYRINGE IVPUSH ONE ×2 (13:04→15:35)
[2022-08-02 13:42] LABS: CARBON DIOXIDE,CO2 27.1 mmol/L (21.0-32.0); POTASSIUM,K 3.4 mmol/L (3.5-5.1)
== END 2022-08-02 17:23 | disposition home or self-care (01) ==
LOC: MW.ED 12:12
DX: O99.891 Other specified diseases and conditions complicating pregnancy (principal); R10.2 Pelvic and perineal pain; O99.342 Other mental disorders complicating pregnancy, second trimester; F41.9 Anxiety disorder, unspecified; F32.A Depression, unspecified; Z3A.17 17 weeks gestation of pregnancy; Z79.899 Other long term (current) drug therapy
CPT/HCPCS: 36415; 76810; 76817; 80053; 81001; 85027; 96361; 96374; 96375; 96376; 99284; J2270; J2405; J7030